=== PATIENT | male | born 1955 | race Caucasian/White ===

== ENCOUNTER 2018-11-05 09:54 | Emergency (ER) | payer OTHER, BC ==
[~2018-11-05] VITALS: Ht 175.3 cm; Wt 96.8 kg
[2018-11-05 09:56] VITALS: PULSE 87; TEMP 97.1
[2018-11-05] MEDS ORDERED: GLUCOVANCE 5 MG1 TAB PO (10:13)
[2018-11-05] MEDS ORDERED: PRAVACHOL10 MG PO (10:14)
[2018-11-05] MEDS ORDERED: ZESTRIL 10MG10 MG PO (10:14)
[2018-11-05] MEDS ORDERED: NORVASC 5MG5 MG/TAB PO (10:15)
[2018-11-05] MEDS ORDERED: LANTUS100 U/ML SQ (10:15)
[2018-11-05 10:46] LABS: COLLECTION METHOD CLEAN CATCH
[2018-11-05 10:52] LABS: MUCOUS Present /lpf; PH 6 (5-8); SQUAMOUS EPITHELIAL None Seen /hpf; URINE APPEARANCE Clear; URINE BACTERIA None Seen /hpf; URINE BILIRUBIN Negative (NEGATIVE); URINE BLOOD 1+ (NEGATIVE); URINE COLOR Straw; URINE GLUCOSE 2+ (NEGATIVE); URINE KETONE Negative (NEGATIVE); URINE LEUKOCYTE ESTERASE Negative (NEGATIVE); URINE NITRATE Negative (NEGATIVE); URINE PROTEIN(semi-quant) 2+ (NEGATIVE); URINE UROBILINOGEN Negative (NEGATIVE)
[2018-11-05 11:03] LABS: BASO # 0.1 (0.0-0.2); BASO % 0.6 % (0.0-2.0); EOS # 0.4 (0.0-0.7); EOS % 4.8 % (0-4.0); HEMATOCRIT 43.4 % (42.0-52.0); HEMOGLOBIN 14.9 g/dl (13.5-18.0); LYMPH # 2.1 (1.2-3.4); LYMPH % 24.9 % (20.0-51.0); MEAN CELL VOLUME 83 fl (80.0-100.0); MEAN CORPUSCULAR HEMOGLOBIN 29 pg (27.0-31.0); MEAN CORPUSCULAR HGB CONC 34 g/dl (33.0-37.0); MEAN PLATELET VOLUME 11.1 fl (7.4-10.4); MONO # 0.8 (0.1-0.6); MONO % 9.3 % (1.7-9.3); PLATELET COUNT 225 K/mm3 (130-400); RED BLOOD COUNT 5.23 M/mm3 (4.20-5.60); REDCELL DISTRIBUTION WIDTH-CV 13.1 % (11.5-14.5)
[2018-11-05 11:22] LABS: BILIRUBIN,TOTAL 0.6 mg/dL (0.0-1.0); CALCIUM 9.7 mg/dL (8.4-10.2); CREATININE, serum 1.75 (0.66-1.25); POTASSIUM 4.2 mmol/L (3.4-5.0); TOTAL PROTEIN 7.3 gm/dL (6.4-8.2)
[2018-11-05] MEDS ORDERED: PREDNISONE20 MG PO (13:45)
[2018-11-05] MEDS ORDERED: PRILOSEC 20MG20 MG PO (13:46)
[2018-11-05] MEDS ORDERED: JANUVIA 100MG100 MG PO (13:47)
[2018-11-05 13:54] VITALS: BP 187/101
[2018-11-05] MEDS ORDERED: APRESOLINE 10MG10 MG PO (13:56)
[2018-11-05] MEDS ORDERED: CEPHALEXIN500 M1 PO (13:56)
[2018-11-05] MEDS ORDERED: MEDROL 4MG DOSPA4 MG PO (13:56)
== END 2018-11-05 14:20 | disposition home or self-care (01) ==
LOC: COL.ER 09:54
PROVIDERS: Emergency Medicine
DX: K12.2 Cellulitis and abscess of mouth (principal); T78.3XXA Angioneurotic edema, initial encounter; E11.65 Type 2 diabetes mellitus with hyperglycemia; I10 Essential (primary) hypertension; Z79.4 Long term (current) use of insulin; Z79.52 Long term (current) use of systemic steroids
CPT/HCPCS: J1200; J1815; J2930; J7030; J7040